=== PATIENT | male | born 1975 | race Two or more races ===

== ENCOUNTER 2019-03-19 09:09 | Emergency (ER) | payer OTHER ==
[~2019-03-19] VITALS: Ht 167.6 cm; Wt 72.7 kg
--- NOTE | 2019-03-19 09:27 | NUR ---
[employer] at bedside. Case # [id number]
[2019-03-19] MEDS ORDERED: acetaminophen 325mg tablet PO ONE (10:20)
[2019-03-19 10:42] VITALS: BP 130/82
== END 2019-03-19 10:43 | disposition home or self-care (01) ==
LOC: ER 09:09
DX: M54.6 Pain in thoracic spine (principal); Y08.89XA Assault by other specified means, initial encounter; Y93.89 Activity, other specified; Y92.89 Other specified places as the place of occurrence of the external cause; Y99.8 Other external cause status
CPT/HCPCS: 71046; 99283